=== PATIENT | male | born 1970 | race African-American/Black ===

== ENCOUNTER 2024-08-12 09:09 | Emergency (ER) | payer OTHER ==
[2024-08-12] MEDS ORDERED: Acetaminophen 500 MG TAB ONE (09:57)
[2024-08-12] MEDS ORDERED: Ibuprofen 800 MG TAB ONE (09:57)
[2024-08-12 10:17] LABS: Hematocrit 38.9 % (42.0-52.0); Hemoglobin 13.4 g/dL (14.0-18.0); Mean Corpuscular HGB CONC 34.4 g/dL (32.0-36.0); Mean Corpuscular Hemoglobin 25.2 pg (27.0-31.0); Mean Corpuscular Volume 73.1 fL (78.0-98.0); Platelet Count 197 10x3/uL (130-400); RBC Distribution Width 17.1 % (11.5-14.5); Red Blood Cell (RBC) Count 5.32 mill/uL (4.70-6.10)
[2024-08-12 10:43] LABS: Microcytosis SLIGHT = 6-15 cells HPF (0-5); Platelet Adequacy Comment Platelets Normal; Polychromasia SLIGHT = 2-3 cells HPF (0-2)
[2024-08-12 10:52] LABS: #Basophils 0.07 10x3/uL (0.0-0.2); %Basophils 0.7 % (0.0-1.0); %Eosinophils 1.9 % (0.0-10.0); %Lymphocytes 20.4 % (21.0-51.0); %Monocytes 6.5 % (0.0-10.0); %Neutrophils 70.2 % (42.0-75.0)
[2024-08-12 12:09] LABS: ALT (SGPT) 19 U/L (8-55); AST (SGOT) 18 U/L (5-34); Albumin 3.1 g/dL (3.5-5.0); Anion Gap 12 mmol/L (10-20); BUN (Urea Nitrogen) 13 mg/dL (8.4-25.7); Bilirubin, Total 0.6 mg/dL (0.2-1.2); Carbon Dioxide 27 mmol/L (22-29); Chloride 104 mmol/L (98-107); Globulin 5.1 g/dL (2.4-3.5); Glucose 150 mg/dL (70-105); Potassium 4.5 mmol/L (3.5-5.1); Protein, Total 8.2 g/dL (6.0-8.3); Sodium 138 mmol/L (136-145)
[2024-08-12 12:35] LABS: Calc. Creatinine Clearance 0 mL/min (70-130); Estimated GFR 88
[2024-08-12 13:15] LABS: Alkaline Phosphatase 102 U/L (40-110)
== END 2024-08-12 12:15 | disposition home or self-care (01) ==
LOC: EEVIPCON 09:09 → ERS 09:09
DX: L03.032 Cellulitis of left toe (principal); I10 Essential (primary) hypertension; E11.9 Type 2 diabetes mellitus without complications; Z89.422 Acquired absence of other left toe(s); Z89.421 Acquired absence of other right toe(s)
CPT/HCPCS: 36415; 80053; 85025; 99284

== ENCOUNTER 2024-09-13 20:49 | Inpatient (IN) | payer OTHER ==
[2024-09-14 00:43] VITALS: BMI 34.9
[2024-09-14] MEDS ORDERED: Calcium Carbonate 500 MG ChewTAB PO PRN (01:25)
[2024-09-14] MEDS ORDERED: Acetaminophen 650 MG Suppository PR PRN (01:25)
[2024-09-14] MEDS ORDERED: Acetaminophen 325 MG TAB PO PRN ×3 (01:25→10:16)
[2024-09-14] MEDS ORDERED: Ondansetron ODT 4 MG TAB PO PRN (01:25)
[2024-09-14] MEDS ORDERED: Glucagon 1 MG/ML KIT IM PRN (01:27)
[2024-09-14] MEDS ORDERED: Dextrose 50% Abboject 50 ML SYRINGE SLOW IVP PRN (01:27)
[2024-09-14] MEDS ORDERED: Dextrose 5% in Water 1,000 ML IV PRN (01:27)
[2024-09-14] MEDS: Insulin Lispro 100 UNIT/ML 10 ML VIAL SC PRN ×2 (01:55→12:20)
[2024-09-14] MEDS: Ondansetron PF 4 MG/2 ML Vial IVP PRN (01:56)
[2024-09-14] MEDS: Lactated Ringer's 1,000 ML IV SCH (01:56)
[2024-09-14 05:04] LABS: #Basophils 0.04 10x3/uL (0.0-0.2); #Eosinophils Less than 0.03 10x3/uL (0.0-0.7); %Basophils 0.3 % (0.0-1.0); %Eosinophils 0.1 % (0.0-10.0); %Lymphocytes 5.8 % (21.0-51.0); %Monocytes 11.7 % (0.0-10.0); %Neutrophils 81.6 % (42.0-75.0); Hematocrit 31.7 % (42.0-52.0); Hemoglobin 11.5 g/dL (14.0-18.0); Mean Corpuscular HGB CONC 36.3 g/dL (32.0-36.0); Mean Corpuscular Hemoglobin 25.3 pg (27.0-31.0); Mean Corpuscular Volume 69.8 fL (78.0-98.0); Platelet Count 137 10x3/uL (130-400); RBC Distribution Width 16.6 % (11.5-14.5); Red Blood Cell (RBC) Count 4.54 mill/uL (4.70-6.10)
[2024-09-14 05:22] LABS: Hemoglobin A1c 11.3 % (4.0-6.0)
[2024-09-14 05:24] LABS: ALT (SGPT) 21 U/L (Less than 45); AST (SGOT) 32 U/L (11-34); Albumin 2.4 g/dL (3.1-4.5); Alkaline Phosphatase 63 U/L (40-110); Anion Gap 13 mmol/L (10-20); BUN (Urea Nitrogen) 34 mg/dL (8.4-25.7); Bilirubin, Total 0.7 mg/dL (0.3-1.2); Calc. Creatinine Clearance 86 mL/min (70-130); Calcium 7.5 mg/dL (7.8-10.44); Carbon Dioxide 21 mmol/L (22-29); Chloride 104 mmol/L (98-107); Estimated GFR 56; Globulin 4.2 g/dL (2.4-3.5); Glucose 286 mg/dL (70-105); Potassium 3.7 mmol/L (3.5-5.1); Protein, Total 6.6 g/dL (6.0-8.3); Sodium 134 mmol/L (136-145)
[2024-09-14 05:29] LABS: Microcytosis SLIGHT = 6-15 cells HPF (0-5); Platelet Adequacy Comment Platelets Normal
[2024-09-14] MEDS: Famotidine/PF 20 mg/2ml Vial SLOW IVP SCH (07:57)
[2024-09-14] MEDS: Ciprofloxacin Lactate/D5W 400 MG in Premix 1 BAG IVPB SCH (07:58)
[2024-09-14] MEDS: Famotidine 20 MG TAB PO SCH (08:17)
[2024-09-14] MEDS: NS 0.9% w/ 20 MEQ KCL 1,000 ML/1,000 ML BAG IV SCH (12:18)
[2024-09-14] MEDS: traMADol HCl 50 MG TAB PO PRN (12:19)
[2024-09-14] MEDS: Gabapentin 300 MG CAP PO SCH ×2 (12:19→20:48)
[2024-09-14] MEDS: Mometasone 100 MCG HFA INHALER (RT USE) INH SCH (17:48)
[2024-09-14] MEDS: Aripiprazole 10 MG TAB PO SCH (20:48)
[2024-09-14] MEDS: diphenhydrAMINE 50 MG CAP PO SCH (20:48)
[2024-09-14] MEDS: Insulin Glargine 30 UNITS/0.3 ML VIAL SC SCH (20:49)
[2024-09-14] MEDS: Atorvastatin Calcium 10 MG TAB PO SCH (20:49)
[2024-09-14] MEDS ORDERED: CICLESONIDE INH SCH (21:00)
[2024-09-15 06:28] LABS: #Basophils 0.07 10x3/uL (0.0-0.2); %Basophils 0.4 % (0.0-1.0); %Eosinophils 0.2 % (0.0-10.0); %Lymphocytes 8.3 % (21.0-51.0); %Neutrophils 76.2 % (42.0-75.0); Mean Corpuscular HGB CONC 36.4 g/dL (32.0-36.0); Mean Corpuscular Hemoglobin 25.5 pg (27.0-31.0); Mean Corpuscular Volume 70.1 fL (78.0-98.0); Platelet Count 141 10x3/uL (130-400); RBC Distribution Width 16.4 % (11.5-14.5); Red Blood Cell (RBC) Count 4.71 mill/uL (4.70-6.10)
[2024-09-15 06:35] LABS: Anion Gap 12 mmol/L (10-20); BUN (Urea Nitrogen) 22 mg/dL (8.4-25.7); Calc. Creatinine Clearance 102 mL/min (70-130); Calcium 7.7 mg/dL (7.8-10.44); Carbon Dioxide 21 mmol/L (22-29); Chloride 106 mmol/L (98-107); Estimated GFR 69; Glucose 203 mg/dL (70-105); Potassium 3.7 mmol/L (3.5-5.1); Sodium 135 mmol/L (136-145)
[2024-09-15] MEDS: Vancomycin (BATCH) 2 GM in Premix 1 BAG IVPB SCH (08:37)
[2024-09-15] MEDS: Aspirin 81 mg Enteric Coated Tablet PO SCH (08:38)
[2024-09-15] MEDS: Insulin Glargine 30 UNITS/0.3 ML VIAL SC SCH (08:39)
[2024-09-15] MEDS: Clopidogrel Bisulfate 75 MG TAB PO SCH (08:39)
[2024-09-15] MEDS: Amlodipine 10 MG TAB PO SCH (08:39)
[2024-09-15] MEDS: Cefepime 1 GM in Sodium Chloride 0.9% 100 ML IVPB SCH (10:19)
[2024-09-15] MEDS: Cefepime 2 GM in Sodium Chloride 0.9% 100 ML IVPB SCH (21:42)
[2024-09-15] MEDS: Vancomycin 1 GM in Premix 1 BAG IVPB SCH (21:43)
[2024-09-16 05:49] LABS: #Basophils 0.07 10x3/uL (0.0-0.2); %Basophils 0.4 % (0.0-1.0); %Eosinophils 1.1 % (0.0-10.0); %Lymphocytes 8.8 % (21.0-51.0); %Monocytes 10.1 % (0.0-10.0); %Neutrophils 78.7 % (42.0-75.0); Hematocrit 31.8 % (42.0-52.0); Hemoglobin 11.4 g/dL (14.0-18.0); Mean Corpuscular HGB CONC 35.8 g/dL (32.0-36.0); Mean Corpuscular Hemoglobin 25.1 pg (27.0-31.0); Platelet Count 158 10x3/uL (130-400); RBC Distribution Width 16.7 % (11.5-14.5); Red Blood Cell (RBC) Count 4.54 mill/uL (4.70-6.10)
[2024-09-16 06:15] LABS: Anion Gap 12 mmol/L (10-20); BUN (Urea Nitrogen) 17 mg/dL (8.4-25.7); Calc. Creatinine Clearance 109 mL/min (70-130); Calcium 7.9 mg/dL (7.8-10.44); Carbon Dioxide 20 mmol/L (22-29); Chloride 109 mmol/L (98-107); Estimated GFR 75; Glucose 187 mg/dL (70-105); Potassium 3.7 mmol/L (3.5-5.1); Sodium 137 mmol/L (136-145)
[2024-09-16 06:21] LABS: Microcytosis SLIGHT = 6-15 cells HPF (0-5); Platelet Adequacy Comment Platelets Normal; Polychromasia SLIGHT = 2-3 cells HPF (0-2); Target Cells SLIGHT = 2-5 cells HPF (0-1)
[2024-09-16] MEDS ORDERED: Iopamidol-370 76% 500 ML MDV (1 ML CHARGE) ONE (10:05)
[2024-09-17 06:23] LABS: Anion Gap 11 mmol/L (10-20); BUN (Urea Nitrogen) 15 mg/dL (8.4-25.7); Calc. Creatinine Clearance 117 mL/min (70-130); Calcium 8.1 mg/dL (7.8-10.44); Carbon Dioxide 21 mmol/L (22-29); Chloride 108 mmol/L (98-107); Estimated GFR 82; Glucose 237 mg/dL (70-105); Potassium 3.9 mmol/L (3.5-5.1); Sodium 136 mmol/L (136-145)
[2024-09-17 06:44] LABS: #Basophils 0.07 10x3/uL (0.0-0.2); %Basophils 0.4 % (0.0-1.0); %Eosinophils 3.2 % (0.0-10.0); %Lymphocytes 11.2 % (21.0-51.0); %Monocytes 9.1 % (0.0-10.0); Hematocrit 31.9 % (42.0-52.0); Hemoglobin 11.5 g/dL (14.0-18.0); Mean Corpuscular HGB CONC 36.1 g/dL (32.0-36.0); Mean Corpuscular Hemoglobin 25.3 pg (27.0-31.0); Mean Corpuscular Volume 70.1 fL (78.0-98.0); Platelet Count 179 10x3/uL (130-400); RBC Distribution Width 16.9 % (11.5-14.5); Red Blood Cell (RBC) Count 4.55 mill/uL (4.70-6.10)
[2024-09-18 05:24] LABS: Anion Gap 12 mmol/L (10-20); BUN (Urea Nitrogen) 13 mg/dL (8.4-25.7); Calc. Creatinine Clearance 129 mL/min (70-130); Calcium 7.9 mg/dL (7.8-10.44); Carbon Dioxide 21 mmol/L (22-29); Chloride 110 mmol/L (98-107); Estimated GFR 92; Glucose 175 mg/dL (70-105); Potassium 3.8 mmol/L (3.5-5.1); Sodium 139 mmol/L (136-145)
[2024-09-18 05:25] LABS: #Basophils 0.08 10x3/uL (0.0-0.2); %Basophils 0.6 % (0.0-1.0); %Eosinophils 4.5 % (0.0-10.0); %Lymphocytes 12.5 % (21.0-51.0); %Monocytes 9.4 % (0.0-10.0); %Neutrophils 70.8 % (42.0-75.0); Hematocrit 28.7 % (42.0-52.0); Hemoglobin 10.2 g/dL (14.0-18.0); Mean Corpuscular HGB CONC 35.5 g/dL (32.0-36.0); Mean Corpuscular Hemoglobin 25.1 pg (27.0-31.0); Mean Corpuscular Volume 70.5 fL (78.0-98.0); Platelet Count 212 10x3/uL (130-400); RBC Distribution Width 16.7 % (11.5-14.5); Red Blood Cell (RBC) Count 4.07 mill/uL (4.70-6.10)
[2024-09-18 06:11] LABS: Anisocytosis SLIGHT = 6-15 cells HPF (0-5); Hypochromia SLIGHT = 6-15 cells HPF (0-5); Microcytosis SLIGHT = 6-15 cells HPF (0-5); Platelet Adequacy Comment Platelets Normal; Polychromasia SLIGHT = 2-3 cells HPF (0-2); Target Cells MODERATE= 6-15 cells HPF (0-1)
[2024-09-18] MEDS: Furosemide 40 MG (4 mL) VIAL SLOW IVP SCH (10:29)
[2024-09-18] MEDS ORDERED: Iopamidol-370 76% 500 ML MDV (1 ML CHARGE) ONE (14:56)
[2024-09-19 10:17] LABS: #Basophils 0.09 10x3/uL (0.0-0.2); %Basophils 0.6 % (0.0-1.0); %Eosinophils 3.8 % (0.0-10.0); %Lymphocytes 12.3 % (21.0-51.0); %Monocytes 7.6 % (0.0-10.0); %Neutrophils 73.5 % (42.0-75.0); Anion Gap 11 mmol/L (10-20); BUN (Urea Nitrogen) 16 mg/dL (8.4-25.7); Calc. Creatinine Clearance 118 mL/min (70-130); Calcium 8.6 mg/dL (7.8-10.44); Carbon Dioxide 22 mmol/L (22-29); Chloride 105 mmol/L (98-107); Estimated GFR 83; Glucose 185 mg/dL (70-105); Hematocrit 30.2 % (42.0-52.0); Hemoglobin 10.8 g/dL (14.0-18.0); Mean Corpuscular HGB CONC 35.8 g/dL (32.0-36.0); Mean Corpuscular Hemoglobin 24.9 pg (27.0-31.0); Mean Corpuscular Volume 69.7 fL (78.0-98.0); Platelet Count 302 10x3/uL (130-400); Potassium 4.1 mmol/L (3.5-5.1); RBC Distribution Width 16.7 % (11.5-14.5); Red Blood Cell (RBC) Count 4.33 mill/uL (4.70-6.10); Sodium 134 mmol/L (136-145)
[2024-09-19 10:37] LABS: Anisocytosis SLIGHT = 6-15 cells HPF (0-5); Band 3 % (5-11); Eosinophils 5 % (0-10); Hypochromia SLIGHT = 6-15 cells HPF (0-5); Large Platelets 1.9 % (0-5); Lymphocytes 10 % (21-51); Microcytosis SLIGHT = 6-15 cells HPF (0-5); Monocytes 7 % (0-10); Neutrophil 74 % (42-75); Platelet Adequacy Comment Platelets Normal; Polychromasia SLIGHT = 2-3 cells HPF (0-2); Smudge Cells 2.9 %; Target Cells MODERATE= 6-15 cells HPF (0-1)
[2024-09-19 14:45] LABS: Vancomycin, Random 21.7 ug/mL (See Comment)
[2024-09-20 08:10] LABS: #Basophils 0.09 10x3/uL (0.0-0.2); %Basophils 0.5 % (0.0-1.0); %Eosinophils 2.9 % (0.0-10.0); %Lymphocytes 13.4 % (21.0-51.0); %Monocytes 6.7 % (0.0-10.0); %Neutrophils 74.2 % (42.0-75.0); Hematocrit 34.1 % (42.0-52.0); Hemoglobin 12.1 g/dL (14.0-18.0); Mean Corpuscular HGB CONC 35.5 g/dL (32.0-36.0); Mean Corpuscular Hemoglobin 25.1 pg (27.0-31.0); Mean Corpuscular Volume 70.7 fL (78.0-98.0); Platelet Count 240 10x3/uL (130-400); RBC Distribution Width 16.9 % (11.5-14.5); Red Blood Cell (RBC) Count 4.82 mill/uL (4.70-6.10)
[2024-09-20 08:16] LABS: Anion Gap 14 mmol/L (10-20); BUN (Urea Nitrogen) 14 mg/dL (8.4-25.7); Calc. Creatinine Clearance 124 mL/min (70-130); Carbon Dioxide 22 mmol/L (22-29); Chloride 103 mmol/L (98-107); Estimated GFR 87; Glucose 155 mg/dL (70-105); Potassium 4.4 mmol/L (3.5-5.1); Sodium 135 mmol/L (136-145)
[2024-09-20] MEDS: Sodium Chloride 0.9% 100 ML ONE (09:35)
[2024-09-21 06:52] LABS: #Basophils 0.07 10x3/uL (0.0-0.2); %Basophils 0.5 % (0.0-1.0); %Eosinophils 2.3 % (0.0-10.0); %Lymphocytes 12.8 % (21.0-51.0); %Monocytes 7.4 % (0.0-10.0); %Neutrophils 75.4 % (42.0-75.0); Hematocrit 30.6 % (42.0-52.0); Hemoglobin 10.7 g/dL (14.0-18.0); Mean Corpuscular Hemoglobin 24.9 pg (27.0-31.0); Mean Corpuscular Volume 71.3 fL (78.0-98.0); Platelet Count 329 10x3/uL (130-400); Red Blood Cell (RBC) Count 4.29 mill/uL (4.70-6.10)
[2024-09-21 07:01] LABS: Anion Gap 11 mmol/L (10-20); BUN (Urea Nitrogen) 16 mg/dL (8.4-25.7); Calc. Creatinine Clearance 106 mL/min (70-130); Carbon Dioxide 26 mmol/L (22-29); Chloride 103 mmol/L (98-107); Estimated GFR 73; Glucose 129 mg/dL (70-105); Potassium 3.9 mmol/L (3.5-5.1); Sodium 136 mmol/L (136-145)
[2024-09-21] MEDS ORDERED: Iopamidol 370 76% 100 ML VIAL ONE (09:53)
[2024-09-21] MEDS ORDERED: Heparin 10,000 UNITS/ 10 ML VIAL ONE (11:46)
[2024-09-21] MEDS ORDERED: Lidocaine 1% PF 5 ML VIAL ONE (12:03)
[2024-09-21] MEDS ORDERED: Sodium Bicarbonate 2.5 MEQ/5 ML SDV ONE (12:03)
[2024-09-21] MEDS ORDERED: fentaNYL 50 mcg/mL 1 mL Vial ONE (12:27)
[2024-09-21] MEDS ORDERED: Midazolam HCl 2 mg/2 ml Vial ONE (12:27)
[2024-09-21 18:32] VITALS: BMI 34.9
[2024-09-21] MEDS: Sodium Chloride 0.9% 100 ML ONE (21:36)
[2024-09-22 06:51] LABS: #Basophils 0.05 10x3/uL (0.0-0.2); %Basophils 0.4 % (0.0-1.0); %Eosinophils 1.9 % (0.0-10.0); %Lymphocytes 15.7 % (21.0-51.0); %Monocytes 8.2 % (0.0-10.0); %Neutrophils 72.7 % (42.0-75.0); Hematocrit 29.7 % (42.0-52.0); Hemoglobin 10.4 g/dL (14.0-18.0); Mean Corpuscular Hemoglobin 24.8 pg (27.0-31.0); Mean Corpuscular Volume 70.9 fL (78.0-98.0); Platelet Count 296 10x3/uL (130-400); RBC Distribution Width 16.8 % (11.5-14.5); Red Blood Cell (RBC) Count 4.19 mill/uL (4.70-6.10)
[2024-09-22] MEDS ORDERED: Sodium Bicarbonate 2.5 MEQ/5 ML SDV ONE (07:00)
[2024-09-22] MEDS ORDERED: Lidocaine 1% PF 5 ML VIAL ONE (07:00)
[2024-09-22 07:02] LABS: Anion Gap 11 mmol/L (10-20); BUN (Urea Nitrogen) 17 mg/dL (8.4-25.7); Calc. Creatinine Clearance 100 mL/min (70-130); Calcium 8.6 mg/dL (7.8-10.44); Carbon Dioxide 27 mmol/L (22-29); Chloride 101 mmol/L (98-107); Estimated GFR 68; Glucose 218 mg/dL (70-105); Potassium 4.5 mmol/L (3.5-5.1); Sodium 134 mmol/L (136-145)
[2024-09-22] MEDS ORDERED: Iopamidol 30 ML ONE (07:45)
[2024-09-22] MEDS: diphenhydrAMINE 25 MG CAP PO SCH (20:06)
[2024-09-23 06:26] LABS: #Basophils 0.08 10x3/uL (0.0-0.2); %Basophils 0.6 % (0.0-1.0); %Eosinophils 1.6 % (0.0-10.0); %Lymphocytes 15.2 % (21.0-51.0); %Monocytes 8.3 % (0.0-10.0); %Neutrophils 73.6 % (42.0-75.0); Hematocrit 29.8 % (42.0-52.0); Hemoglobin 10.4 g/dL (14.0-18.0); Mean Corpuscular HGB CONC 34.9 g/dL (32.0-36.0); Mean Corpuscular Hemoglobin 24.8 pg (27.0-31.0); Mean Corpuscular Volume 71.1 fL (78.0-98.0); Mean Platelet Volume 11.5 fL (7.4-10.4); Platelet Count 320 10x3/uL (130-400); RBC Distribution Width 16.9 % (11.5-14.5); Red Blood Cell (RBC) Count 4.19 mill/uL (4.70-6.10)
[2024-09-23 06:30] LABS: Anion Gap 10 mmol/L (10-20); BUN (Urea Nitrogen) 14 mg/dL (8.4-25.7); Calc. Creatinine Clearance 113 mL/min (70-130); Calcium 8.8 mg/dL (7.8-10.44); Carbon Dioxide 26 mmol/L (22-29); Chloride 103 mmol/L (98-107); Estimated GFR 78; Glucose 134 mg/dL (70-105); Potassium 4.2 mmol/L (3.5-5.1); Sodium 135 mmol/L (136-145)
[2024-09-24 06:37] LABS: #Basophils 0.06 10x3/uL (0.0-0.2); %Basophils 0.5 % (0.0-1.0); %Lymphocytes 15.1 % (21.0-51.0); %Monocytes 8.8 % (0.0-10.0); %Neutrophils 72.8 % (42.0-75.0); Hematocrit 31.1 % (42.0-52.0); Mean Corpuscular HGB CONC 35.4 g/dL (32.0-36.0); Mean Corpuscular Volume 70.7 fL (78.0-98.0); Mean Platelet Volume 11.5 fL (7.4-10.4); Platelet Count 306 10x3/uL (130-400); RBC Distribution Width 16.8 % (11.5-14.5)
[2024-09-24 06:45] LABS: Vancomycin, Random 18.7 ug/mL (See Comment)
[2024-09-24 06:49] LABS: Anion Gap 13 mmol/L (10-20); BUN (Urea Nitrogen) 20 mg/dL (8.4-25.7); Calc. Creatinine Clearance 108 mL/min (70-130); Calcium 8.9 mg/dL (7.8-10.44); Carbon Dioxide 24 mmol/L (22-29); Chloride 106 mmol/L (98-107); Estimated GFR 74; Glucose 153 mg/dL (70-105); Potassium 4.5 mmol/L (3.5-5.1); Sodium 138 mmol/L (136-145)
[2024-09-25] MEDS: traMADol HCl 50 MG TAB PO PRN (09:46)
[2024-09-26] MEDS: Hydrocortisone 1% Cream 30 GM TUBE TOP SCH (10:26)
[2024-09-28 09:35] LABS: Anion Gap 12 mmol/L (10-20); BUN (Urea Nitrogen) 18 mg/dL (8.4-25.7); Calc. Creatinine Clearance 112 mL/min (70-130); Calcium 9.1 mg/dL (7.8-10.44); Carbon Dioxide 26 mmol/L (22-29); Chloride 106 mmol/L (98-107); Estimated GFR 77; Glucose 224 mg/dL (70-105); Potassium 4.6 mmol/L (3.5-5.1); Sodium 139 mmol/L (136-145)
[2024-09-28 09:43] LABS: Hematocrit 33.4 % (42.0-52.0); Hemoglobin 11.7 g/dL (14.0-18.0); Mean Corpuscular Hemoglobin 25.5 pg (27.0-31.0); Mean Corpuscular Volume 72.8 fL (78.0-98.0); Platelet Count 354 10x3/uL (130-400); RBC Distribution Width 17.4 % (11.5-14.5); Red Blood Cell (RBC) Count 4.59 mill/uL (4.70-6.10)
[2024-09-28 10:24] LABS: Anisocytosis SLIGHT = 6-15 cells HPF (0-5); Hypochromia SLIGHT = 6-15 cells HPF (0-5); Macrocytosis SLIGHT = 6-15 cells HPF (0-5); Microcytosis SLIGHT = 6-15 cells HPF (0-5); Ovalocytes SLIGHT = 2-5 cells HPF (0-1); Platelet Adequacy Comment Platelets Normal; Polychromasia SLIGHT = 2-3 cells HPF (0-2); Target Cells MODERATE= 6-15 cells HPF (0-1)
[2024-09-28 11:56] VITALS: BP 144/94; TEMP 98.5
== END 2024-09-28 18:13 | DRG 638 ==
LOC: EEVIPCON → T4-A 23:42 → OBSVTOIN 09-14 10:37
PROVIDERS: ADMIT Student in an Organized Health Care Education/Training Program; ATTEND Internal Medicine
PROC: B41J1ZZ Fluoroscopy of Other Lower Arteries using Low Osmolar Contrast (ICD-10-PCS; principal; 2024-09-21)
PROC: B5181ZA Fluoroscopy of Superior Vena Cava using Low Osmolar Contrast, Guidance (ICD-10-PCS; 2024-09-21)
PROC: B41J1ZZ Fluoroscopy of Other Lower Arteries using Low Osmolar Contrast (ICD-10-PCS; 2024-09-21)
PROC: B5181ZA Fluoroscopy of Superior Vena Cava using Low Osmolar Contrast, Guidance (ICD-10-PCS; 2024-09-21)
PROC: B41F1ZZ Fluoroscopy of Right Lower Extremity Arteries using Low Osmolar Contrast (ICD-10-PCS; 2024-09-21)
PROC: B4101ZZ Fluoroscopy of Abdominal Aorta using Low Osmolar Contrast (ICD-10-PCS; 2024-09-21)
PROC: 02HV33Z Insertion of Infusion Device into Superior Vena Cava, Percutaneous Approach (ICD-10-PCS; 2024-09-22)
DX: E11.628 Type 2 diabetes mellitus with other skin complications (principal); F33.9 Major depressive disorder, recurrent, unspecified; M86.271 Subacute osteomyelitis, right ankle and foot; L03.032 Cellulitis of left toe; N17.9 Acute kidney failure, unspecified; L03.031 Cellulitis of right toe; A08.4 Viral intestinal infection, unspecified; I10 Essential (primary) hypertension; F43.10 Post-traumatic stress disorder, unspecified; J45.909 Unspecified asthma, uncomplicated; E86.0 Dehydration; R19.7 Diarrhea, unspecified; E78.5 Hyperlipidemia, unspecified; E11.42 Type 2 diabetes mellitus with diabetic polyneuropathy; E11.69 Type 2 diabetes mellitus with other specified complication; E11.51 Type 2 diabetes mellitus with diabetic peripheral angiopathy without gangrene; Z98.890 Other specified postprocedural states; Z79.899 Other long term (current) drug therapy; Z79.82 Long term (current) use of aspirin
CPT/HCPCS: 36247; 36415; 36416; 36573; 75630; 75635; 75710; 80048; 80053; 80202; 83036; 83735; 85025; 96374; 96375; 96376; 97139; 99152; 99153; C1751; C1760; C1769; C1887; C1894; G0378; J0692; J0744; J1644; J1815; J1940; J2250; J2405; J3010; J3370; J3480; J3490; J7120; Q9967

== ENCOUNTER 2025-03-19 22:13 | Inpatient (IN) | payer OTHER ==
[2025-03-19 23:08] VITALS: BMI 35.4
[2025-03-19] MEDS ORDERED: Dextrose 50% Abboject 50 ML SYRINGE SLOW IVP PRN (23:35)
[2025-03-19] MEDS ORDERED: Acetaminophen 325 MG TAB PO PRN (23:35)
[2025-03-19] MEDS ORDERED: Ondansetron PF 4 MG/2 ML Vial IVP PRN (23:35)
[2025-03-19] MEDS ORDERED: Glucagon 1 MG/ML KIT IM PRN (23:35)
[2025-03-20] MEDS ORDERED: Albuterol 200 PUFF (6.7GM INHALER) INH PRN (00:07)
[2025-03-20] MEDS ORDERED: Acetaminophen 325 MG TAB PO PRN (00:07)
[2025-03-20] MEDS: carBAMazepine 200 MG TAB PO SCH ×3 (00:33→20:08)
[2025-03-20] MEDS: cloNIDine 0.1 MG TAB PO SCH (00:55)
[2025-03-20 01:22] LABS: #Basophils 0.08 10x3/uL (0.0-0.2); #Eosinophils 0.36 10x3/uL (0.0-0.7); #Monocytes 1.14 10x3/uL (0.11-0.59); #Neutrophils 9.19 10x3/uL (1.40-6.50); %Basophils 0.6 % (0.0-1.0); %Eosinophils 2.7 % (0.0-10.0); %Lymphocytes 19.7 % (21.0-51.0); %Monocytes 8.4 % (0.0-10.0); %Neutrophils 68.0 % (42.0-75.0); Hematocrit 32.9 % (42.0-52.0); Hemoglobin 10.8 g/dL (14.0-18.0); Mean Corpuscular Hemoglobin 24.5 pg (27.0-31.0); Mean Corpuscular Volume 74.6 fL (78.0-98.0); Platelet Count 297 10x3/uL (130-400); Red Blood Cell (RBC) Count 4.41 mill/uL (4.70-6.10); White Blood Cell (WBC) Count 13.51 10x3/uL (4.8-10.8)
[2025-03-20 01:35] LABS: Anion Gap 13 mmol/L (10-20); BUN (Urea Nitrogen) 20 mg/dL (8.4-25.7); Calc. Creatinine Clearance 115 mL/min (70-130); Calcium 8.3 mg/dL (7.8-10.44); Carbon Dioxide 22 mmol/L (22-29); Chloride 104 mmol/L (98-107); Glucose 203 mg/dL (70-105); Potassium 4.3 mmol/L (3.5-5.1); Sodium 135 mmol/L (136-145)
[2025-03-20] MEDS: Gabapentin 300 MG CAP PO SCH (09:31)
[2025-03-20] MEDS: Famotidine 20 MG TAB PO SCH (09:31)
[2025-03-20] MEDS: Ferrous Sulfate 325 MG TAB PO SCH (09:31)
[2025-03-20] MEDS: Insulin Glargine 30 UNITS/0.3 ML VIAL SC SCH ×2 (09:31→20:13)
[2025-03-20] MEDS: Aspirin 81 mg Enteric Coated Tablet PO SCH (09:32)
[2025-03-20] MEDS: diphenhydrAMINE 25 MG CAP PO SCH (20:09)
[2025-03-21 07:07] LABS: #Basophils 0.07 10x3/uL (0.0-0.2); #Eosinophils 0.45 10x3/uL (0.0-0.7); #Monocytes 0.97 10x3/uL (0.11-0.59); #Neutrophils 7.37 10x3/uL (1.40-6.50); %Basophils 0.6 % (0.0-1.0); %Eosinophils 4.0 % (0.0-10.0); %Lymphocytes 20.4 % (21.0-51.0); %Monocytes 8.6 % (0.0-10.0); %Neutrophils 65.4 % (42.0-75.0); Hematocrit 32.7 % (42.0-52.0); Hemoglobin 11.2 g/dL (14.0-18.0); Mean Corpuscular Hemoglobin 24.7 pg (27.0-31.0); Mean Corpuscular Volume 72.2 fL (78.0-98.0); Platelet Count 326 10x3/uL (130-400); Red Blood Cell (RBC) Count 4.53 mill/uL (4.70-6.10); White Blood Cell (WBC) Count 11.27 10x3/uL (4.8-10.8)
[2025-03-21 07:18] LABS: Anion Gap 14 mmol/L (10-20); BUN (Urea Nitrogen) 15 mg/dL (8.4-25.7); Calc. Creatinine Clearance 107 mL/min (70-130); Calcium 8.3 mg/dL (7.8-10.44); Carbon Dioxide 24 mmol/L (22-29); Chloride 105 mmol/L (98-107); Glucose 119 mg/dL (70-105); Potassium 4.3 mmol/L (3.5-5.1); Sodium 139 mmol/L (136-145)
[2025-03-22 05:15] LABS: #Basophils 0.07 10x3/uL (0.0-0.2); #Eosinophils 0.35 10x3/uL (0.0-0.7); #Monocytes 0.75 10x3/uL (0.11-0.59); #Neutrophils 6.45 10x3/uL (1.40-6.50); %Basophils 0.7 % (0.0-1.0); %Eosinophils 3.5 % (0.0-10.0); %Lymphocytes 22.4 % (21.0-51.0); %Monocytes 7.6 % (0.0-10.0); %Neutrophils 65.1 % (42.0-75.0); Hematocrit 32.9 % (42.0-52.0); Hemoglobin 11.4 g/dL (14.0-18.0); Mean Corpuscular Hemoglobin 24.8 pg (27.0-31.0); Mean Corpuscular Volume 71.5 fL (78.0-98.0); Platelet Count 310 10x3/uL (130-400); Red Blood Cell (RBC) Count 4.60 mill/uL (4.70-6.10); White Blood Cell (WBC) Count 9.91 10x3/uL (4.8-10.8)
[2025-03-22 05:26] LABS: Anion Gap 11 mmol/L (10-20); BUN (Urea Nitrogen) 13 mg/dL (8.4-25.7); Calc. Creatinine Clearance 125 mL/min (70-130); Calcium 8.5 mg/dL (7.8-10.44); Carbon Dioxide 24 mmol/L (22-29); Chloride 107 mmol/L (98-107); Glucose 129 mg/dL (70-105); Potassium 4.2 mmol/L (3.5-5.1); Sodium 138 mmol/L (136-145)
[2025-03-22 16:07] VITALS: BP 166/94
[2025-03-22 16:44] VITALS: TEMP 98.2
== END 2025-03-22 21:15 | disposition short-term general hospital (02) | DRG 565 ==
LOC: T4-B 22:32 → EEVIPCON 22:32 → T4-B 23:00
PROVIDERS: ADMIT Internal Medicine; ATTEND Internal Medicine
DX: T87.43 Infection of amputation stump, right lower extremity (principal); L02.611 Cutaneous abscess of right foot; N17.9 Acute kidney failure, unspecified; M86.9 Osteomyelitis, unspecified; M86.8X7 Other osteomyelitis, ankle and foot; E11.628 Type 2 diabetes mellitus with other skin complications; Z98.890 Other specified postprocedural states; E11.51 Type 2 diabetes mellitus with diabetic peripheral angiopathy without gangrene; E11.622 Type 2 diabetes mellitus with other skin ulcer; I25.10 Atherosclerotic heart disease of native coronary artery without angina pectoris; I10 Essential (primary) hypertension; F32.A Depression, unspecified; J45.909 Unspecified asthma, uncomplicated; Z79.51 Long term (current) use of inhaled steroids; Z79.82 Long term (current) use of aspirin; Z79.899 Other long term (current) drug therapy; Z79.4 Long term (current) use of insulin; E11.69 Type 2 diabetes mellitus with other specified complication; E11.621 Type 2 diabetes mellitus with foot ulcer; L97.519 Non-pressure chronic ulcer of other part of right foot with unspecified severity; F43.10 Post-traumatic stress disorder, unspecified; Y83.5 Amputation of limb(s) as the cause of abnormal reaction of the patient, or of later complication, without mention of misadventure at the time of the procedure
CPT/HCPCS: 36415; 36416; 80048; 83036; 85025; 86141; 87070; 87077; 87186; 87205; 97139; J0692; J1815; J2270; J7030